=== PATIENT | male | born 2000 | race African-American/Black ===

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

== ENCOUNTER 2020-05-03 12:12 | Emergency (ER) | payer OTHER ==
[2020-05-04 14:34] LABS: SARS-CoV-2 MS2 Positive; SARS-CoV-2 N Gene Negative; SARS-CoV-2 S Gene Negative; SARS-CoV-2 orf1ab Negative
== END 2020-05-03 13:27 | disposition home or self-care (01) ==
LOC: ERS 12:12
DX: Z20.828 Contact with and (suspected) exposure to other viral communicable diseases (principal)
CPT/HCPCS: 87635; 99283; U0003

== ENCOUNTER 2020-07-31 14:35 | Emergency (ER) | END 2020-07-31 15:04 | disposition left against medical advice (07) | LOC: ERS 14:35 | DX: Z53.21 Procedure and treatment not carried out due to patient leaving prior to being seen by health care provider (principal) ==

== ENCOUNTER 2024-04-22 10:57 | Emergency (ER) | payer OTHER ==
[2024-04-22 13:14] LABS: Bacteria/HPF None Seen HPF (None Seen); Bilirubin Negative (Negative); Blood, Urine Negative (Negative); CAUTI Indications for Culture Pelvic or flank pain; Clarity Clear (Clear); Glucose, Urine (Dipstick) Normal (Negative); Ketone, Urine Negative (Negative); Leukocyte Negative Leu/uL (Negative); Nitrite Negative (Negative); Protein, Urine (Dipstick) Negative (Neg-Trace); RBC/HPF None Seen HPF (0-3); Specific Gravity, Urine 1.004 (1.002-1.036); Squamous Epithelial None Seen HPF (0-3); Urobilinogen Normal mg/dL (Less than 2); WBC/HPF None Seen HPF (0-3)
[2024-04-22 13:16] LABS: Urine Culture Reflex No No
[2024-04-22] MEDS ORDERED: Lidocaine 1% PF 5 ML VIAL ONE (13:32)
[2024-04-22] MEDS ORDERED: cefTRIAXone (ROCEPHIN) 500 MG VIAL ONE (13:33)
[2024-04-23 14:12] LABS: Chlam.trachomatis by PCR,Urine Not Detected (NotDetected); GC N.gonorrhoeae PCR,UrineVOID Not Detected (NotDetected)
== END 2024-04-22 13:55 | disposition home or self-care (01) ==
LOC: ERS 10:57
DX: R35.0 Frequency of micturition (principal); F17.220 Nicotine dependence, chewing tobacco, uncomplicated; Z55.6 Problems related to health literacy
CPT/HCPCS: 81001; 87491; 87591; 96372; 99283; J0696